=== PATIENT | male | born 1995 | race Caucasian/White ===

== ENCOUNTER 2016-04-17 15:24 | Emergency (ER) | payer OTHER ==
[~2016-04-17] VITALS: Ht 177.8 cm; Wt 67.7 kg
[2016-04-17 15:35] VITALS: TEMP 36.8; Ht 177.8 cm; Wt 67.7 kg
[2016-04-17] MEDS ORDERED: LIDOCAINE/EPINEPHRINE 1% 20 ML VIAL ONE (15:43)
[2016-04-17] MEDS ORDERED: XYLOCAINE 1%/SOD BICARB 20 ML VIAL INFIL ONE ×2 (15:50→16:00)
[2016-04-17 17:08] VITALS: BP 105/84; PULSE 70; O2SAT 98
--- NOTE | 2016-04-17 17:53 | EMERGENCY ROOM VISIT NOTE ---
ED Visit Note First contact with patient: 15:40 Chief Complaint: Left index finger laceration. History of Present Illness: Mr. Abreu is a 21-year-old white male who ambulates into the ED complaining of a posterior left finger laceration. Patient reports approximately 5 hours ago he accidentally cut himself at work with a razor blade. He was initially seen at a local urgent care center was referred to the ED for closure. He did report he was able to control bleeding and at the urgent care center and they did clean the wound. Additionally he reports he has a stinging pain in the area of his laceration. He rates his discomfort 1/10. The pain is nonradiating. He discomfort worsens with palpation. He has not identified any alleviating factors related to the pain. He has not taken any medications for pain prior to arrival at the hospital. He denies any associated symptoms including other hand or finger pain , index finger weakness/numbness/tingling. Review of Systems: As noted above in history of present illness. Past Medical History: Status post appendectomy and wisdom teeth extraction. Current Medications: Patient denies. Allergies to Medications: Patient denies. Social History: Patient is currently employed; he feels safe in his home environment; he admits to tobacco and alcohol use. Tetanus immunization status: 2011. Physical Examination: Vital Signs: Date Time Temp Pulse Resp B/P Pulse Ox O2 Delivery O2 Flow Rate FiO2 04/17/16 17:08 70 20 105/84 98 04/17/16 15:35 36.8 64 18 125/83 98 Room Air GENERAL: 21-year-old male in no acute distress, nontoxic-appearing, afebrile and hemodynamically stable. NEUROLOGICAL: Awake, alert and oriented to person, place and time. Answering questions appropriately and following commands. SKIN: Warm, dry and pink. Left Index Finger: Over the posterior aspect of the finger just distal to the PIP joint patient has a 2.8 cm full-thickness laceration. No active bleeding. LEFT INDEX FINGER: Soft tissue injury as noted above. No gross bony deformity. No tenderness over the MCP,, PIP or DIP joints except the immediate area of the laceration. Full range of motion against resistance at the MCP, PIP and DIP joints. Throughout the finger the skin was warm and pink and capillary refill is brisk. He was able to distinguish light sensations through all dermatomes. ED Course: Patient is assessed as noted above. Wound Repair: Complexity: Basic Verbal consent was obtained after the risks and benefits were explained. The skin was prepped with betadine and a sterile field set. Wound edges of the wound was anesthetized with 1.8 ml buffered 1% lidocaine. The wound was explored for foreign bodies and none found. Copious irrigation was performed using sterile saline. With direct pressure the bleeding subsided. Debridement was not performed. The wound edges were approximated using 5-0 Ethilon with 6 simple interrupted sutures. Hemostasis and excellent approximation was achieved. Antibacterial ointment and a sterile dressing applied. A finger splint was placed on the left index finger. No complications and the patient tolerated the procedure well. Patient was educated about tonight's findings and instructed on his treatment plan; he verbalizes understanding and agreement with this plan. Clinical Impression: Laceration of the left index finger. Work related injury. Disposition: Patient discharged home in stable condition; prior to departure he was reassessed and subjectively reported he was pain-free. Plan: Comfort measures, wound care, and signs of infection were discussed with the patient. Patient was encouraged to follow-up with Workmen's Compensation or return to the ED for signs of infection and/or suture removal in 10-12 days.
== END 2016-04-17 17:09 | disposition home or self-care (01) ==
LOC: C.EDB 15:26 → C.EDD 17:09
DX: S61.211A Laceration without foreign body of left index finger without damage to nail, initial encounter (principal); W26.8XXA Contact with other sharp object(s), not elsewhere classified, initial encounter; Y99.0 Civilian activity done for income or pay

== ENCOUNTER 2016-04-30 16:16 | Emergency (ER) | payer OTHER ==
[~2016-04-30] VITALS: Ht 175.3 cm; Wt 66.6 kg
[2016-04-30 16:46] VITALS: BP 118/83; PULSE 89; TEMP 37.6; O2SAT 98; Ht 175.3 cm; Wt 66.6 kg
--- NOTE | 2016-04-30 17:09 | EMERGENCY ROOM VISIT NOTE ---
ED Visit Note First contact with patient: 16:55 CHIEF COMPLAINT: Removal of sutures HISTORY OF PRESENT ILLNESS: This 21-year-old male patient presents to the emergency department for removal of sutures from their left second finger. The sutures were placed 13 days ago. There have been no signs of infection. The patient denies any pain. REVIEW OF SYSTEMS: A review of systems was performed with positives and pertinent negatives listed in the history of present illness. All other systems were reviewed and are negative. ALLERGIES: Bee sting MEDICATIONS: Unchanged from previous visit. PMH: Unchanged from previous visit. SOCIAL HISTORY: Patient lives locally. PHYSICAL EXAM: VITALS: Vitals are noted on the nurse's note and reviewed by myself. Vital signs stable. GENERAL: This is a 21-year-old male, in no acute distress, nondiaphoretic, well- developed well-nourished. SKIN: There is a well-healing sutured wound on the left second finger with no signs of infection. EMERGENCY DEPARTMENT COURSE: The patient was evaluated as above. Sutures were removed from the finger with no dehiscence. There is no evidence of infection. Scar reduction measures were discussed the the patient. They verbalized understanding and were discharged home in good condition. DIAGNOSIS: Encounter for suture removal DISCHARGE INSTRUCTIONS & TREATMENT: Wash the remaining crusts off the wound. Keep the wound covered with SPF for the next 6 months to reduce scarring. Once the wound has fully healed, you may apply Vitamin E oil, cocoa butter, or any over the counter scar reducing formulations daily. Current/Historical Medications No Active Prescriptions or Reported Meds Allergies Coded Allergies: BEE STING (Verified Allergy, Unknown, SWELLING, 10/09/14) Vital Signs Date Time Temp Pulse Resp B/P Pulse Ox O2 Delivery O2 Flow Rate FiO2 04/30/16 16:46 37.6 89 18 118/83 98 Room Air Departure Information Impression Primary Impression: Encounter for removal of sutures Dispostion Home / Self-Care Condition GOOD Prescriptions No Active Prescriptions or Reported Meds Referrals No Doctor, Assigned (PCP) [facility] Instructions [facility] Additional Instructions Wash the remaining crusts off the wound. Keep the wound covered with SPF for the next 6 months to reduce scarring. Once the wound has fully healed, you may apply Vitamin E oil, cocoa butter, or any over the counter scar reducing formulations daily.
== END 2016-04-30 17:14 | disposition home or self-care (01) ==
LOC: C.EDB 16:17 → C.EDD 17:14
DX: S61.211A Laceration without foreign body of left index finger without damage to nail, initial encounter (principal); W26.8XXA Contact with other sharp object(s), not elsewhere classified, initial encounter; Y99.0 Civilian activity done for income or pay